=== PATIENT | male | born 1985 | race Caucasian/White ===

== ENCOUNTER 2018-06-22 19:58 | Emergency (ER) | payer BC ==
[~2018-06-22] VITALS: Ht 172.7 cm; Wt 77.1 kg
[2018-06-22 20:04] VITALS: Ht 172.7 cm; Wt 77.1 kg
[2018-06-22 23:55] VITALS: BP 122/77
== END 2018-06-22 23:50 | disposition home or self-care (01) ==
LOC: ED 19:58
DX: R07.89 Other chest pain (principal); R11.2 Nausea with vomiting, unspecified; F12.90 Cannabis use, unspecified, uncomplicated; Z90.49 Acquired absence of other specified parts of digestive tract
CPT/HCPCS: J2405; J3490; J7030